=== PATIENT | female | born 1970 | race Caucasian/White ===

== ENCOUNTER → 2019-04-03 10:49 | Day surgery (SDC) | payer BC ==
[~2019-04-03 10:49] MED LIST: Buffered Lidocaine 1% SYRIN* 1 ML/SYRINGE INTRADERM ONE; Dexamethasone TAB* 4 MG ONE; Dexamethasone TAB* 4 MG PO ONE; DiMENhydriNATE IV* 50 MG/ML VIAL IV PUSH PRN; Famotidine IV* 10 MG/ML 2 ML (20 mg) IV ONE; Famotidine IV* 10 MG/ML 2 ML (20 mg) ONE; Gelfoam 12-7 ADSORBABL SPONGE* 1 EA SPONGE ONE; HYDROmorphone INJ1* 1 MG/ML SYRINGE IV PRN; KETAMINE HCL* 50 MG/ML 10 ML VIAL ONE; Lactated Ringers 1000 ML Bag* 1,000 ML IV SCH; Lidocaine 2% PF * 5 ML VIAL ONE; Lidocaine 2% w/ EPI 1:200,000* 20 ML SDV VIAL ONE; Metoprolol Tartrate IV* 1 MG/ML 5 ML VIAL ONE; Midazolam* 1 MG/ML 5 ML VIAL (5 MG) ONE; Naloxone* 0.4 MG/ML 1 ML VIAL IV PRN; Ondansetron ODT TAB* 4 MG ONE; Ondansetron ODT TAB* 4 MG PO ONE; Oxymetazoline 0.05% NASAL SPR* 15 ML BTL ONE; PROCHLORPERAZINE INJ 5 MG/ML 2 ML VIAL IV PRN; PROCHLORPERAZINE INJ 5 MG/ML 2 ML VIAL ONE; Propofol* 10 MG/ML 20 ML BTL ONE; Scopolamine 1.5 mg* PATCH TRANSDERM PRN; Scopolamine PATCH Remove* 1 NOTE MISC PATCH OFF ONE; Triamcinolone Acetonide* 40 MG/ML 1 ML VIAL ONE; fentaNYL* 50 MCG/ML 2 ML VIAL (100 MCG VIAL) ONE; hydrALAZINE IV* 20 MG/ML VIAL ONE; oxyCODONE/Acetamin 5/325 MG* TAB ONE
[2019-04-03] MEDS: fentaNYL* 50 MCG/ML 2 ML VIAL (100 MCG VIAL) IV PRN ×3 (14:32→15:00)
[2019-04-03] MEDS: oxyCODONE/Acetamin 5/325 MG* TAB PO PRN ×2 (14:59→15:28)
[2019-04-03 15:34] VITALS: BP 152/88
--- NOTE | 2019-04-03 20:33 | OP ---
DATE OF OPERATION: 04/03/19 - [facility] DATE OF : 68 SURGEON: Constantino Locke MD PRE-OP DIAGNOSIS: Chronic sinusitis. POST-OP DIAGNOSIS: Chronic sinusitis. OPERATIVE PROCEDURE: Bilateral videoendoscopic maxillary antrostomy, bilateral anterior and posterior ethmoidectomy. BRIEF HISTORY: This is a 48-year-old female with longstanding history of chronic sinusitis, extensive involvement in the sinus on CT scan. Medical management had not been helpful. DESCRIPTION OF PROCEDURE: The patient was taken to the operating room, general anesthetic was given, the patient was intubated with LMA. Nose was decongested with Afrin placed pledgets. Lidocaine 2% with epinephrine was infiltrated in the mucosa of the uncinate process on both sides, middle turbinates on both sides. A 0- degree telescope, 30-degree telescopes, and other endoscopic sinus surgery instruments including the microshaver were utilized. The CT was available for review in the OR. We turned our attention to the left side. The uncinate process was identified, peeled anteriorly and then microshaved away completely. Antrostomy was then enlarged, sacrificing some of the wall posteriorly. The mucosa was copious irrigated. Next, we turned our attention to the ethmoidal bulla, resecting it out using a microshaver and coursing towards the lamina papyracea laterally and through the ground lamella to the posterior cells working from that to the skull base posteriorly and anteriorly into the nasal frontal duct area. Once adequate resection was carried out, the area was packed with Gelfilm, Gelfoam, and Surgifoam as a spacer between the middle turbinate and lateral nasal wall. Again, similarly on the right side, the uncinate process was removed and microshaver was utilized to remove it completely. Antrostomy was enlarged. Ethmoidal bulla was resected. Ground lamella was entered coursing and removing some of the posterior cells, coursing using the skull base as a landmark, superiorly into the nasal frontal duct area, and then laterally towards the lamina papyracea and into the nasal frontal duct. Again, the area was packed with Gelfilm, Gelfoam, and Surgifoam. The patient was then awakened and sent to the recovery room in stable condition. Estimated blood loss was between 25 and 50 cc. [id number]/[facility] #: [id number] CHADD
== END | disposition home or self-care (01) ==
LOC: OR 10:49
PROVIDERS: ATTEND Otolaryngology
DX: J32.2 Chronic ethmoidal sinusitis (principal); J34.2 Deviated nasal septum; H81.20 Vestibular neuronitis, unspecified ear; F17.210 Nicotine dependence, cigarettes, uncomplicated
CPT/HCPCS: A9270-GY; J0360; J0780; J2250; J2704; J3010; J3301; J3490; J8540